=== PATIENT | male | born 1980 | race Asian ===

== ENCOUNTER 2016-07-28 22:20 | Emergency (ER) | payer BC ==
[~2016-07-28] VITALS: Ht 167.6 cm; Wt 82.6 kg
[2016-07-28 22:35] VITALS: BP 130/82; PULSE 72; RESP 18; TEMP 97.2; O2SAT 96
--- NOTE | 2016-07-28 23:19 | NUR ---
Placed in room 02 . Placed on athletic monitor, blood pressure machine and pulse oximeter. To gown for exam. Side rails up. Report given to ARIMDA Thomas.
--- NOTE | 2016-07-28 23:30 | NUR ---
Note po in EDM - 07/29/16 at 0402 by SANJANA Pt states he cut his R index finger while opening beans. Laceration is approx 4 cm on the posterior side. Pt was already at urgent care and they were unable to help him. Will continue to monitor. No other injuries or complaints mentioned/noted. No distress noted.
--- NOTE | 2016-07-28 23:30 | NUR ---
Pt states he cut his R index finger while opening beans. Laceration is approx 4 cm on the posterior side. Pt was already at urgent care and they were unable to help him. Bleeding controlled. Will continue to monitor. No other injuries or complaints mentioned/noted. No distress noted.
--- NOTE | 2016-07-29 00:05 | NUR ---
ER Dr. Beckett at bedside examining patient.
[2016-07-29] MEDS ORDERED: BACITRACIN 1 GM OINT TP ONE (00:15)
[2016-07-29] MEDS ORDERED: LIDOCAINE 1% 10 MG/ML, 20 ML MDV IJ ONE (00:15)
[2016-07-29 01:08] VITALS: BP 130/82; PULSE 70; RESP 18; TEMP 97.2; O2SAT 96
--- NOTE | 2016-07-29 01:08 | NUR ---
Patient given written and verbal discharge instructions and verbalizes understanding. ER MD discussed with patient the results and treatment provided. Patient in stable condition. ID arm band removed. Patient educated on pain management and to follow up with PMD. Pain Scale 0/10. Opportunity for questions provided and answered.
== END 2016-07-29 01:08 | disposition home or self-care (01) ==
LOC: SED 22:20
DX: S61.210A Laceration without foreign body of right index finger without damage to nail, initial encounter (principal); W26.8XXA Contact with other sharp object(s), not elsewhere classified, initial encounter; Y93.89 Activity, other specified; Y99.8 Other external cause status; Y92.89 Other specified places as the place of occurrence of the external cause
CPT/HCPCS: 12002; 99283; J2001; J7030